=== PATIENT | male | born 1950 | race Caucasian/White ===

== ENCOUNTER → 2024-04-05 | Outpatient (CLI) | payer MEDICARE, OTHER, SELFPAY ==
--- NOTE | 2024-04-05 07:13 | US_ITS ---
STUDY: RIGHT UPPER QUADRANT ABDOMINAL ULTRASOUND REASON FOR EXAM: Male, 73 years old. Abdominal pain TECHNIQUE: Transabdominal ultrasound was performed with real-time and static boogie scale imaging. TECHNICAL QUALITY: Adequate. COMPARISON: None. FINDINGS: Liver: The liver measures 14.1 cm. There is increased echogenicity consistent with fatty infiltration. The bile ducts are within normal limits. There is hepatic color flow. The direction of portal flow is hepatopetal. There is no demonstrated mass lesion. Gallbladder: Normal distended gallbladder. The gallbladder wall measures 3 mm. There is no pericholecystic fluid. There are no gallstones. Common Bile Duct (C.B.D.): The common bile duct measures 4 mm. Pancreas: Normal size of the head, body and tail of the pancreas.. There is normal echogenicity of the pancreas. There is no demonstrated pancreatic mass or cyst. Right Kidney: Normal size of the right kidney. The right kidney measures 11.0 x 5.5 x 4.8 cm. Normal renal cortex. There is no demonstrated renal mass a simple cyst is present upper pole of the right kidney measuring 2.2 cm in diameter that does not require any additional imaging. There is no right hydronephrosis. There is no ascites. US/Gallbladder IMPRESSION: 1. Benign fatty infiltration of the liver Electronically Signed: Benjie Reilly MD at 10:07 EDT ,
== END | disposition home or self-care (01) ==
LOC: US 07:11
PROVIDERS: PCP Family Medicine; Referring Provider Family Medicine; Visit Provider Family Medicine
DX: R10.9 Unspecified abdominal pain (principal)
CPT/HCPCS: 76705